=== PATIENT | male | born 1950 | race Caucasian/White ===

== ENCOUNTER → 2016-12-11 | Outpatient (CLI) | payer OTHER ==
--- NOTE | 2016-12-11 15:00 | RAD ---
Indication: Chronic back pain. Technique: 2 views of the lumbosacral spine are submitted for review. No comparison is available. Findings: There is mild S-shaped curvature of the lower thoracic and lumbar spine. There are 5 lumbar type vertebral bodies. There is no fracture. Vertebral body height is maintained. There is endplate spurring which is greatest at L4-L5 and L5-S1. Facet hypertrophy is noted which is at least moderate from L3-L4 through L5-S1. 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
== END | disposition home or self-care (01) ==
LOC: RAD 14:08
PROVIDERS: ATTEND Surgery
DX: M47.897 Other spondylosis, lumbosacral region (principal); I70.0 Atherosclerosis of aorta; G89.29 Other chronic pain; R25.1 Tremor, unspecified; R20.0 Anesthesia of skin
CPT/HCPCS: 72100